=== PATIENT | male | born 1965 | race Caucasian/White ===

== ENCOUNTER 2024-08-13 22:58 | Emergency (ER) | payer MEDICAID ==
[~2024-08-13] VITALS: Ht 172.7 cm; Wt 79.0 kg
[2024-08-13 23:30] VITALS: O2SAT 100
[2024-08-13] MEDS: HYDROCODONE/ACETAMINOPHEN 5/325MG TABLET PO ONE (23:45)
[2024-08-14] MEDS: METHOCARBAMOL 500MG TABLET PO ONE (01:31)
[2024-08-14] MEDS: IBUPROFEN 600MG TABLET PO ONE (01:31)
[2024-08-14] MEDS ORDERED: METH-653 MT (02:16)
[2024-08-14] MEDS ORDERED: LIDO700A30 TP (02:16)
[2024-08-14] MEDS ORDERED: IBUP-2029 MT (02:16)
[2024-08-14 02:54] VITALS: BP 148/81; PULSE 68; RESP 16; TEMP 36.7; O2SAT 100
== END 2024-08-14 02:54 | disposition home or self-care (01) ==
LOC: ER 22:58
DX: S20.219A Contusion of unspecified front wall of thorax, initial encounter (principal); I10 Essential (primary) hypertension; V47.6XXA Car passenger injured in collision with fixed or stationary object in traffic accident, initial encounter; Y93.89 Activity, other specified; Y92.89 Other specified places as the place of occurrence of the external cause; Y99.8 Other external cause status
CPT/HCPCS: 71110; 73110; 99284